=== PATIENT | female | born 1995 | race Caucasian/White ===

== ENCOUNTER 2016-05-02 08:27 | Inpatient (IN) | payer MEDICAID ==
[2016-05-02] VITALS (44 sets, daily range): BP systolic 101–161; BP diastolic 45–116; PULSE 69–146; RESP 16–22; TEMP 98.5–99.3; O2SAT 100
[~2016-05-02] VITALS: Ht 167.6 cm; Wt 69.4 kg
[~2016-05-02 08:27] MED LIST: PREN29TA PO; REGL10TA5 PO
[2016-05-02] MEDS ORDERED: LACTATED RINGER'S 1000 ML INJ 1,000 ML IV PRN (09:01)
--- NOTE | 2016-05-02 09:05 | HHI.HP ---
History & Physical H&P HPI Chief Complaint Contractions Date Seen: May 02, 2016 Time Seen: 08:50 Travel History International Travel<30 Days: No Contact w/Intl Traveler<30Days: No Known Affected Area: No History of Present Illness HPI Patient is a 20-year-old at 38 weeks and 6 days who comes in complaining of contractions since 3:00 in the morning. Some vaginal mucus but denies vaginal bleeding or rupture of membranes. Good movement Para: 2 : 3 History Past Medical History Narrative Medical Tonsillectomy [place] tooth removal Obstetric History Obstetric History Spontaneous vaginal delivery 2 Family History Family History: Negative Social History Alcohol Use: No Tobacco Use: No Substance Abuse: No Allergies-Medications (Allergen,Severity, Reaction): Coded Allergies: No Known Allergies (Unverified , 04/30/16) Home Meds Active Scripts Metoclopramide (Reglan)10 Mg Tab10 Mg PO DIRECTED #20 TAB Ref 1 Take 1 tab w onset of nausea and NUNO Prov:Della Marroquin 03/24/16 Reported Medications Vit-Iron Carbonyl ( Plus Iron 29-1 mg)1 Tab Tab1 Tab PO DAILY #30 TAB Ref 0 01/27/16 Review of Systems Except as stated in HPI: all other systems reviewed are Neg Physical Exam Narrative GENERAL: Well-nourished, well-developed patient. SKIN: Warm and dry. HEAD: Normocephalic and atraumatic. EYES: No scleral icterus. No injection or drainage. ENT: No nasal drainage noted. Mucous membranes pink. Airway patent. NECK: Supple, trachea midline. No JVD. CARDIOVASCULAR: Regular rate and rhythm without murmurs, gallops, or rubs. RESPIRATORY: Breath sounds equal bilaterally. No accessory muscle use. BREASTS: Bilateral exam showed no masses , no retractions, no nipple discharge. ABDOMEN/GI: Abdomen soft, non-tender, bowel sounds present, no rebound, no guarding Gravid to [-] weeks size Fundal Height: [-36] GENITOURINARY: External Genitalia: intact and normal in appearance BUS glands: Normal Cervix: Posterior Dilatation: - 4 Effacement: 80 Station: -2 Presentation: Cephalic Membranes: Intact Uterine Contractions: [-] FHT's: Category: [1-] Baseline: 140 Reactive: Moderate Variability: Moderate with accelerations Decels: Absent EXTREMITIES: No cyanosis or edema. BACK: Nontender without obvious deformity. No CVA tenderness. NEUROLOGICAL: Awake and alert. Motor and sensory grossly within normal limits. Five out of 5 muscle strength in all muscle groups. Normal speech. Data Data Vital Signs Reviewed: Yes MDM Plan Patient at 38 weeks 6 days in active labor at 4 cm. Will admit her group B strep is negative Diagnosis Diagnosis: Primary Impression: Irregular contractions Additional Impression: 39 weeks gestation of Janet Acevedo MD May 02, 2016 09:01 Janet Acevedo MD May 02, 2016 09:05
[2016-05-02] MEDS ORDERED: LIDOCAINE HCL 1% 50 ML VIAL INFIL PRN (09:15)
[2016-05-02] MEDS ORDERED: SODIUM CHLORID 0.9% 500 ML INJ 500 ML IV PRN (09:15)
[2016-05-02] MEDS ORDERED: LIDOCAINE HCL 1% 50 ML VIAL I-DERMAL PRN (09:15)
[2016-05-02] MEDS ORDERED: OXYTOCIN 30 UNITS-500ML PREMIX 500 ML IV ONE ×2 (09:15→13:15)
[2016-05-02] MEDS ORDERED: CITRIC ACID-SODIUM CITRATE LIQ 30 ML UDC PO SCH (09:15)
[2016-05-02] MEDS ORDERED: MINERAL OIL 10 ML VIAL TOPICAL PRN (09:15)
[2016-05-02] MEDS ORDERED: SODIUM CHLOR 0.9% 1000 ML INJ 1,000 ML IV PRN (09:21)
[2016-05-02 09:35] LABS: AUTOMATED NEUTROPHIL # 12.7 TH/MM3 (1.8-7.7); BASOPHIL % 0.2 % (0.0-2.0); EOSINOPHIL # 0.1 TH/MM3 (0-0.4); EOSINOPHIL % 0.4 % (0.0-4.0); HEMATOCRIT 31.2 % (35.0-46.0); LYMPH % 15.2 % (9.0-44.0); LYMPHOCYTE # 2.5 TH/MM3 (1.0-4.8); MEAN CELL VOLUME 85.9 FL (80.0-100.0); MEAN CORPUSCULAR HEMOGLOBIN 29.1 PG (27.0-34.0); MEAN CORPUSCULAR HGB CONC 33.9 % (32.0-36.0); MONO % 5.3 % (0.0-8.0); NEUT % 78.9 % (16.0-70.0); PLATELET COUNT 274 TH/MM3 (150-450); RED BLOOD COUNT 3.64 MIL/MM3 (4.00-5.30); WHITE BLOOD COUNT 16.1 TH/MM3 (4.0-11.0)
[2016-05-02 09:39] LABS: HEMO FLAGS AUTO DIFF
[2016-05-02 09:42] LABS: BLOOD, URINE NEG (NEG); COMMENT (UR) CULTURE INDICATED; CULTURE IF INDICATED CULTURE INDICATED; GLUCOSE,URINE NEG (NEG); KETONE, URINE NEG (NEG); NITRITE,URINE NEG (NEG); SQUAMOUS EPITHELIAL CELL URINE 26 /hpf (0-5); URINE COLOR YELLOW (YELLW/STRAW)
[2016-05-02] MEDS ORDERED: ePHEDrine/NS 25 MG/5 ML SYR ONE (09:54)
[2016-05-02] MEDS: LACTATED RINGER'S 1000 ML INJ 1,000 ML IV SCH ×2 (09:54→11:06)
[2016-05-02] MEDS ORDERED: fentaNYL 2MCG-BUPIV 0.125% INJ 100 ML ONE (09:55)
[2016-05-02 10:10] LABS: BANDS 4 % (0-6); BASOPHILS 1 % (0-2); METAMYELOCYTES 1 % (0-1); NEUTROPHIL # MANUAL DIFF 12.7 TH/MM3 (1.8-7.7); POLYS (SEG NEUTROPHILS) 73 % (16-70); PROMYELOCYTES 1 % (0-0); WBC DIFF SAMPLE 100
[2016-05-02 10:11] LABS: PLATELET ESTIMATE SMEAR NORMAL (NORMAL); PLATELET MORPHOLOGY NORMAL (NORMAL); SCAN/DIFF FINAL DIFF MANUAL; TOXIC GRANULATION 1+ (NORMAL)
--- NOTE | 2016-05-02 11:53 | HHI.FPPN ---
Addendum to progress note ADDENDUM Reason for addendum: Additonal documentation Additional information 20 y/o -- 38.6, GBS negative Labor progress: Cervix 6 cm, 80% 0 station. Cat 1 tracing, baseline 130, + accels, no decels, moderate variability [place]: Di q 3 minutes AROM at 1150 hrs. Clear fluids. mary jane Ricardo. Efraín Lima MD R2 May 02, 2016 11:53
[2016-05-02] MEDS ORDERED: ALUMINUM/MAGNESIUM/SIMETH 30 ML CUP PO PRN (13:15)
[2016-05-02] MEDS ORDERED: DOCUSATE SODIUM 50 MG/SENNA 8.6 MG TAB PO PRN (13:15)
[2016-05-02] MEDS ORDERED: SODIUM CHLORIDE 0.9% FLUSH 5 ML FLUSH IV SCH (13:15)
[2016-05-02] MEDS ORDERED: BENZOCAINE 20% TOPICAL SPRAY 60 ML CAN TOPICAL PRN (13:15)
[2016-05-02] MEDS ORDERED: SODIUM CHLORIDE 0.9% FLUSH 5 ML FLUSH IV PRN (13:15)
[2016-05-02] MEDS ORDERED: ONDANSETRON ODT 4 MG TAB PO PRN (13:15)
[2016-05-02] MEDS ORDERED: ZOLPIDEM TARTRATE 5 MG TAB PO PRN (13:15)
[2016-05-02] MEDS ORDERED: WITCH HAZEL 50%/GLYCERIN 12.5% 40 PAD JAR TOPICAL PRN (13:15)
--- NOTE | 2016-05-02 13:19 | PD.OB.DELI ---
Delivery Date: May 02, 2016 Anesthesia: Epidural Episiotomy: None Vaginal Delivery: Normal Presentation: Occiput anterior Nuchal Cord: x1 Delayed cord clamping (45 sec): Yes One Minute : 8 Five Minute : 9 Weight: 3315 grams Infant Care: Suctioned, Responded to stimulation Placenta: Spontaneous delivery, Intact, 3 vessel cord Additional Information 20 year old now delivered at 38 weeks and 6 days via uncomplicated vaginal delivery. Placenta delivered spontaneously intact with 3-vessel cord. Eduardo Seay MD R1 May 02, 2016 13:19
--- NOTE | 2016-05-02 13:57 | PD.LABORPN ---
Subjective Subjective OB attending note Patient delivered a term over an intact perineum a viable female weight 3315 g 8 patient's delivery no lacerations. Placenta delivered spontaneously intact.. Delivery performed by the family medicine residents did an excellent job. Supervised by myself. Mother and baby doing well time of dictation Objective Vital Signs Vital Signs Date Time Temp Pulse Resp B/P Pulse Ox O2 Delivery O2 Flow Rate FiO2 05/02/16 12:31 16 05/02/16 12:30 91 05/02/16 12:30 99 116/74 05/02/16 12:25 93 05/02/16 12:20 89 05/02/16 12:15 95 128/69 05/02/16 12:15 103 05/02/16 12:10 117 05/02/16 12:10 102/66 05/02/16 12:05 107 05/02/16 12:00 125/71 05/02/16 12:00 92 05/02/16 11:56 121 133/45 05/02/16 11:45 146 131/97 05/02/16 11:35 16 05/02/16 11:30 86 124/66 05/02/16 11:15 93 111/65 05/02/16 11:01 69 111/76 05/02/16 10:58 16 05/02/16 10:58 98.5 05/02/16 10:45 117 106/63 05/02/16 10:35 108 120/72 05/02/16 10:30 104 125/64 05/02/16 10:25 112 05/02/16 10:25 135/49 05/02/16 10:21 16 05/02/16 10:20 104 121/68 05/02/16 10:15 106 133/77 05/02/16 10:14 116 127/69 05/02/16 10:10 114 05/02/16 10:05 101 05/02/16 08:45 99.3 Objective Ramiro Ricardo II, MD May 02, 2016 13:57
[2016-05-02] MEDS ORDERED: DIPHTH/TETANUS/ACEL PERTUSSIS (BOOSTER) 0.5 ML VIAL/PFS IM ONE (16:00)
[2016-05-02] MEDS ORDERED: MEASLES, MUMPS, RUBELLA VACCINE 0.5 ML VIAL SQ ONE (16:00)
[2016-05-02] MEDS: ACETAMINOPHEN 325 MG TAB PO PRN (16:45)
[2016-05-02] MEDS: IBUPROFEN 600 MG TAB PO PRN (16:46)
--- NOTE | 2016-05-03 07:53 | HHI.OB ---
Subjective Post Day: 1 Remarks day #1. AFVSS overnight. Pain well-controlled. Lochia more than her periods. Denies dysuria. No breast tenderness. She is feeding the baby via breast. Appetite good. No nausea or vomiting. Positive flatus. No bowel movement. Ambulating well. Denies calf pain, shortness of breath, or cough. Otherwise, she is doing well this morning and has no other complaints. Objective Vitals/I&O Vital Signs Date Time Temp Pulse Resp B/P Pulse Ox O2 Delivery O2 Flow Rate FiO2 05/02/16 16:30 98.6 89 22 05/02/16 16:30 144/60 05/02/16 14:54 16 05/02/16 14:30 84 110/67 05/02/16 14:30 98.6 16 05/02/16 14:16 79 119/63 05/02/16 14:01 88 107/58 05/02/16 14:00 16 05/02/16 13:45 86 112/67 05/02/16 13:32 96 115/89 05/02/16 13:30 16 05/02/16 13:27 161/115 05/02/16 13:16 122 101/77 05/02/16 13:05 16 05/02/16 13:00 131/116 05/02/16 12:55 117 100 05/02/16 12:50 110 100 18/17 12:45 105 100 17 12:45 102 119/78 18/17 12:40 115 18/17 12:40 100 05/02/17 12:35 100 18/17 12:35 92 18/17 12:31 16 18/17 12:30 91 18/17 12:30 99 116/74 18/17 12:25 93 18/17 12:20 89 18/17 12:15 95 128/69 18/17 12:15 103 18/17 12:10 117 18/17 12:10 102/66 18/ 12:05 107 05/02/16 12:00 125/71 05/02/16 12:00 92 18 11:56 121 133/45 18/17 11:45 146 131/97 05/02/16 11:35 16 05/02/16 11:30 86 124/66 05/02/16 11:15 93 111/65 05/02/16 11:01 69 111/76 05/02/16 10:58 16 05/02/16 10:58 98.5 05/02/16 10:45 117 106/63 05/02/16 10:35 108 120/72 05/02/16 10:30 104 125/64 05/02/16 10:25 112 05/02/16 10:25 135/49 05/02/16 10:21 16 05/02/16 10:20 104 121/68 05/02/16 10:15 106 133/77 05/02/16 10:14 116 127/69 05/02/16 10:10 114 05/02/16 10:05 101 05/02/16 08:45 99.3 Objective Remarks GENERAL: Well-nourished, well-developed patient. CARDIOVASCULAR: Regular rate and rhythm without murmurs, gallops, or rubs. RESPIRATORY: Breath sounds equal bilaterally. No accessory muscle use. ABDOMEN/GI: Abdomen soft, non-tender. Fundus: Firm, non-tender at umbilicus. GENITOURINARY: Light to moderate bleeding. EXTREMITIES: No cyanosis, minimal pedal edema, non-tender, without signs of DVT. Medications and IVs Current Medications Medications (Trade) Dose Ordered Sig/Genaro Route Start Time Stop Time Status Last Admin (NS Flush) 2 ml BID IV 05/02/16 13:15 (NS Flush) 2 ml UNSCH PRN IV 05/02/16 13:15 (Tylenol) 650 mg Q4H PRN PO 05/02/16 13:15 05/02/16 16:45 (Motrin) 600 mg Q6H PRN PO 05/02/16 13:15 05/02/16 16:46 (Americaine 20% Top Spr) 1 spray Q4H PRN TOPICAL 05/02/16 13:15 05/02/16 16:46 (Tucks Pads) 1 applic QID PRN TOPICAL 05/02/16 13:15 05/02/16 16:46 (Mariann-Colace) 2 tab Q12H PRN PO 05/02/16 13:15 (Ambien) 5 mg HS PRN PO 05/02/16 13:15 (Mag-Al Plus Susp Liq) 15 ml Q8H PRN PO 05/02/16 13:15 (Zofran Odt) 4 mg Q6H PRN PO 05/02/16 13:15 (Flu (Quadrivalent) Vaccine Inj) 0.5 ml ONCE ONCE IM 05/03/16 10:00 05/03/16 10:01 Assessment/Plan Assessment and Plan 20y/o female who is PPD#1 s/p -Continue routine care -Motrin PRN for pain -Pericolase PRN for constipation -Encouraged OOB. Advised pelvic rest for 6 wks -Will need a follow-up appointment within 6 wks -Re: ctrl - patient is undecided about options because of insurance issues -D/c 1-2 days [facility] attending Discharge Planning Anticipate discharge in 1-2 days Christine Lo MD R1 May 03, 2016 07:53
[2016-05-03] MEDS: IBUPROFEN 600 MG TAB PO PRN ×2 (09:00→16:21)
[2016-05-03] MEDS: ACETAMINOPHEN 325 MG TAB PO PRN ×2 (09:00→16:22)
[2016-05-03] MEDS ORDERED: INFLUENZA VIRUS VACCINE (QUADRIVALENT) 0.5 ML SYR IM ONE (10:00)
[2016-05-04] MEDS: IBUPROFEN 600 MG TAB PO PRN ×2 (03:16→08:46)
[2016-05-04] MEDS: ACETAMINOPHEN 325 MG TAB PO PRN ×2 (03:37→08:46)
--- NOTE | 2016-05-04 07:05 | HHI.DCPOC ---
Discharge Care Plan Diagnosis: (1) Normal vaginal delivery (2) 39 weeks gestation of Your Health Problems Are: Vaginal delivery Report Symptoms to Your Doctor -Temperate above 100.5 degrees -Redness, of incision or excessive or foul smelling drainage -Unusual pain or calf pain -Increased vaginal bleeding -Painful or difficulty urinating -Feelings of extreme sadness or anxiety after 2 weeks Goals to Promote Your Health * To prevent worsening of your condition and complications * To maintain your health at the optimal level Directions to Meet Your Goals Take your medications as prescribed Follow your dietary instruction Follow activity as directed Ensure plenty of rest for recovery Drink fluids for hydration Keep your appointments as scheduled Take your immunizations and boosters as scheduled If your symptoms worsen call your PCP, if no PCP go to Urgent Care Center or Emergency Room Smoking is Dangerous to Your Health. Avoid second hand smoke Call the 24-hour crisis hotline for domestic abuse at Aylin Chung MD R1 May 04, 2016 07:04 Leonila Jade MD May 04, 2016 09:06
[2016-05-04] MEDS ORDERED: IBUP-232 PO (07:19)
[2016-05-04] MEDS ORDERED: SENN1TAB PO (07:19)
--- NOTE | 2016-05-04 07:25 | HHI.OB ---
Subjective Post Day: 2 Remarks day #2. AFVSS overnight. Pain well-controlled. 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 Denies dysuria. No breast tenderness. She is feeding the baby via breast. Appetite good. No nausea or vomiting. Has had BM. Ambulating well. Denies calf pain, shortness of breath, or cough. She would like control but not Depo Provera , thinks she cannot afford other options. (Aylin Chung MD R1) Objective Objective Remarks GENERAL: Well-nourished, well-developed patient. CARDIOVASCULAR: Regular rate and rhythm without murmurs, gallops, or rubs. RESPIRATORY: Breath sounds equal bilaterally. No accessory muscle use. ABDOMEN/GI: Abdomen soft, non-tender. Fundus: Firm, non-tender at umbilicus. GENITOURINARY: Light to moderate bleeding. EXTREMITIES: No cyanosis, minimal pedal edema, non-tender, without signs of DVT. Medications and IVs Current Medications Medications (Trade) Dose Ordered Sig/Genaro Route Start Time Stop Time Status Last Admin (NS Flush) 2 ml BID IV 05/02/16 13:15 (NS Flush) 2 ml UNSCH PRN IV 05/02/16 13:15 (Tylenol) 650 mg Q4H PRN PO 05/02/16 13:15 05/04/16 03:37 (Motrin) 600 mg Q6H PRN PO 05/02/16 13:15 05/04/16 03:16 (Americaine 20% Top Spr) 1 spray Q4H PRN TOPICAL 05/02/16 13:15 05/02/16 16:46 (Tucks Pads) 1 applic QID PRN TOPICAL 05/02/16 13:15 05/02/16 16:46 (Mariann-Colace) 2 tab Q12H PRN PO 05/02/16 13:15 (Ambien) 5 mg HS PRN PO 05/02/16 13:15 (Mag-Al Plus Susp Liq) 15 ml Q8H PRN PO 05/02/16 13:15 (Zofran Odt) 4 mg Q6H PRN PO 05/02/16 13:15 (Aylin Chung MD R1) Assessment/Plan Assessment and Plan 20y/o female who is PPD#2 s/p -Continue routine care -Motrin PRN for pain -Pericolace PRN for constipation -Encouraged OOB. Advised pelvic rest for 6 wks -Will need a follow-up appointment within 6 wks -Re: ctrl - patient is undecided about options because of insurance issues -D/c today [facility] attending Discharge Planning Anticipate discharge today (Aylin Chung MD R1) Attending Attestation PPD #2 s/p Doing well well Desire Micronor for BP, reviewed usage - daily while F/u with [facility] in 2 weeks. Rx Motrin patient seen and examined with Dr. Chung and Dr. Rivero (Leonila Jade MD) Aylin Chung MD R1 May 04, 2016 07:25 Leonila Jade MD May 04, 2016 09:05
[2016-05-04] MEDS ORDERED: ORTH0.35 PO (08:49)
== END 2016-05-04 14:39 | disposition home or self-care (01) | DRG 775 ==
LOC: HOBED 08:27 → H2EB 09:04 → H1EA 16:05
PROVIDERS: ADMIT Obstetrics & Gynecology Obstetrics; ATTEND Obstetrics & Gynecology Obstetrics
PROC: 10E0XZZ Delivery of Products of Conception, External Approach (ICD-10-PCS; principal; 2016-05-02)
DX: O80 Encounter for full-term uncomplicated delivery (principal); Z37.0 Single live birth; Z3A.38 38 weeks gestation of pregnancy
CPT/HCPCS: 81001; 85007; 85027; 87086; 90686; 90715; 99284; J7120; Q2038